=== PATIENT | male | born 1970 | race Caucasian/White ===

== ENCOUNTER 2016-11-25 20:35 | Emergency (ER) | payer SELFPAY ==
[~2016-11-25] VITALS: Ht 180.3 cm; Wt 106.6 kg
[~2016-11-25 20:35] MED LIST: ANTIVERT25 MG PO; CLEOCIN150 MG PO; IBU800 M1 PO; LISINOPRIL20 MG PO; PERCOCET 325 MG1 TA2 PO; SYNTHROID0.05 MG PO
[2016-11-26] MEDS ORDERED: Motrin,Rufen800 MG PO (00:23)
[2016-11-26] MEDS ORDERED: Percocet 325 MG1 TAB PO (00:23)
== END 2016-11-26 00:59 | disposition home or self-care (01) ==
LOC: ED 20:35
DX: S90.31XA Contusion of right foot, initial encounter (principal); S90.32XA Contusion of left foot, initial encounter; F17.200 Nicotine dependence, unspecified, uncomplicated; Z88.0 Allergy status to penicillin; Z88.1 Allergy status to other antibiotic agents; Z79.899 Other long term (current) drug therapy; W18.39XA Other fall on same level, initial encounter; Y93.89 Activity, other specified; Y92.89 Other specified places as the place of occurrence of the external cause; Y99.8 Other external cause status

== ENCOUNTER 2017-05-16 23:38 | Inpatient (IN) | payer SELFPAY ==
[~2017-05-16] VITALS: Ht 180.3 cm; Wt 108.0 kg
[~2017-05-16 23:38] MED LIST changes: +Motrin,Rufen800 MG PO; +Percocet 325 MG1 TAB PO
[2017-05-16 23:39] VITALS: BP 145/88
[2017-05-17 00:02] LABS: BASO % 0.4 % (0.0-1.0); EOS # 0.2 10*3/uL (0.0-0.4); EOS % 3.1 % (1.0-4.0); HEMATOCRIT 42.6 % (42.0-52.0); HEMOGLOBIN 14.1 g/dl (14.0-18.0); LYMPH # 0.8 10*3/uL (1.3-4.4); LYMPH % 15.1 % (27.0-41.0); MEAN CORPUSCULAR HGB 30.5 pg (27.0-31.0); MEAN CORPUSCULAR HGB CONC 33.1 g/dl (33.0-37.0); MEAN PLATELET VOLUME 10.3 fl (9.6-12.3); MONO # 0.8 10*3/uL (0.1-1.0); MONO % 14.5 % (3.0-9.0); NEUT # 3.4 10*3/uL (2.3-7.9); NEUT % 66.7 % (47.0-73.0); PLATELET COUNT AUTOMATED 150 10*3/uL (130-400); RED BLOOD COUNT 4.63 10*6/uL (4.50-5.90); RED CELL DISTRI WIDTH 12.6 % (0-14.5); WHITE BLOOD COUNT 5.2 10*3/uL (4.8-10.8)
[2017-05-17 00:11] VITALS: BP 125/71
[2017-05-17 00:14] LABS: ACT PARTIAL THROMBO TIME 25.7 SECONDS (20.8-31.5); INTERNATIONAL NORM RATIO 1.1 (2.0-3.5)
[2017-05-17 00:19] LABS: ALBUMIN 3.5 gm/dl (3.1-4.5); ALKALINE PHOSPHATASE 112 U/L (45-117); BUN 13 mg/dl (7-24); CHLORIDE 107 mmol/L (98-107); CREATININE 1.09 mg/dL (0.70-1.30); POTASSIUM 3.7 mmol/L (3.5-5.1); SGOT/AST 53 IU/L (3-35); SGPT/ALT 90 U/L (12-78); SODIUM 140 mmol/L (136-145); TOTAL PROTEIN 6.5 gm/dL (6.4-8.2)
[2017-05-17 00:24] LABS: TROPONIN I < 0.015 ng/ml (<0.045)
[2017-05-17 00:40] VITALS: BP 122/69
[2017-05-17 01:18] VITALS: BP 106/71
[2017-05-17] MEDS ORDERED: LEVOTHYROXINE150 MCG PO (01:37)
[2017-05-17] MEDS ORDERED: METFORMIN500 MG PO (01:55)
[2017-05-17] MEDS ORDERED: LISINOPRIL20 MG PO (01:55)
[2017-05-17 02:00] VITALS: BP 117/58
[2017-05-17 05:40] LABS: BILIRUBIN NEGATIVE (NEGATIVE); BLOOD NEGATIVE (NEGATIVE); CLARITY SL CLOUDY (CLEAR); COLOR YELLOW (YELLOW); GLUCOSE NEGATIVE (NEGATIVE); KETONE NEGATIVE (NEGATIVE); LEUKO ESTERASE 1+ (NEGATIVE); NITRITE NEGATIVE (NEGATIVE); PH 5.5 (5.0-9.0); SPECIFIC GRAVITY <= 1.005 (1.005-1.030); UROBILINOGEN 0.2 E.U./dl (0.2-1.0)
[2017-05-17 06:07] LABS: BASO % 0.5 % (0.0-1.0); EOS # 0.1 10*3/uL (0.0-0.4); EOS % 1.8 % (1.0-4.0); HEMATOCRIT 42.9 % (42.0-52.0); LYMPH % 23.2 % (27.0-41.0); MEAN CELL VOLUME 92.1 fl (80.0-94.0); MEAN CORPUSCULAR HGB CONC 32.6 g/dl (33.0-37.0); MEAN PLATELET VOLUME 10.5 fl (9.6-12.3); MONO # 0.6 10*3/uL (0.1-1.0); MONO % 14.6 % (3.0-9.0); NEUT # 2.6 10*3/uL (2.3-7.9); NEUT % 59.4 % (47.0-73.0); PLATELET COUNT AUTOMATED 146 10*3/uL (130-400); RED BLOOD COUNT 4.66 10*6/uL (4.50-5.90); RED CELL DISTRI WIDTH 12.7 % (0-14.5); WHITE BLOOD COUNT 4.4 10*3/uL (4.8-10.8)
[2017-05-17 06:12] LABS: BUN 11 mg/dl (7-24); CHLORIDE 106 mmol/L (98-107); CHOLESTEROL 130 mg/dL (<200); HDL CHOLESTEROL 31 mg/dl (40-60); LDL CHOLESTEROL 82 mg/dL (9-159); POTASSIUM 3.8 mmol/L (3.5-5.1); SODIUM 141 mmol/L (136-145); TRIGLYCERIDES 83 mg/dl (<150); VLDL CHOLESTEROL 17 mg/dL (6-40)
[2017-05-17 06:18] LABS: THYROID STIM HORMONE (HS) 0.085 uIU/ml (0.358-4.75)
[2017-05-17 06:20] LABS: INTERNATIONAL NORM RATIO 1.1 (2.0-3.5)
[2017-05-17 07:18] LABS: VITAMIN D, 25-HYDROXY 19.3 ng/mL (30-100)
[2017-05-17 08:00] VITALS: BP 112/79
[2017-05-17] MEDS ORDERED: VITAMIN D-32000 UNIT PO (11:51)
[2017-05-17] MEDS ORDERED: VIBRAMYCIN100 MG PO (11:51)
[2017-05-17] MEDS ORDERED: Vitamin D PO (11:51)
[2017-05-17] MEDS ORDERED: SYNTHROID,LEV125 MCG PO (11:51)
[2017-05-17] MEDS ORDERED: PREDNISONE20 M1 PO (11:51)
== END 2017-05-17 13:06 | disposition home or self-care (01) | DRG 206 ==
LOC: ED 23:38 → EDHOLD 05-17 01:31 → 4E 05-17 01:32
PROVIDERS: Emergency Medicine Emergency Medical Services; Internal Medicine
PROC: 4A02XM4 Measurement of Cardiac Total Activity, External Approach (ICD-10-PCS; principal; 2017-05-17)
DX: M94.0 Chondrocostal junction syndrome [Tietze] (principal); E11.65 Type 2 diabetes mellitus with hyperglycemia; I10 Essential (primary) hypertension; E03.9 Hypothyroidism, unspecified; F17.210 Nicotine dependence, cigarettes, uncomplicated; J20.9 Acute bronchitis, unspecified; Z79.899 Other long term (current) drug therapy; Z82.49 Family history of ischemic heart disease and other diseases of the circulatory system; Z88.0 Allergy status to penicillin; Z88.8 Allergy status to other drugs, medicaments and biological substances; Z71.6 Tobacco abuse counseling

== ENCOUNTER 2017-11-12 00:27 | Emergency (ER) | payer SELFPAY ==
[~2017-11-12] VITALS: Ht 180.3 cm; Wt 108.0 kg
[~2017-11-12 00:27] MED LIST changes: +LEVOTHYROXINE150 MCG PO; +METFORMIN500 MG PO; +PREDNISONE20 M1 PO; +SYNTHROID,LEV125 MCG PO; +VIBRAMYCIN100 MG PO; +VITAMIN D-32000 UNIT PO; +Vitamin D PO
[2017-11-12] MEDS ORDERED: KETOROLAC10 MG PO (01:37)
[2017-11-12] MEDS ORDERED: CLINDAMYCIN HC300 MG PO (01:37)
== END 2017-11-12 01:54 | disposition home or self-care (01) ==
LOC: ED 00:27
DX: S91.339A Puncture wound without foreign body, unspecified foot, initial encounter (principal); K04.01 Reversible pulpitis; K02.9 Dental caries, unspecified; E11.9 Type 2 diabetes mellitus without complications; E03.9 Hypothyroidism, unspecified; F17.200 Nicotine dependence, unspecified, uncomplicated; Z88.0 Allergy status to penicillin; Z88.1 Allergy status to other antibiotic agents; Z79.899 Other long term (current) drug therapy; W22.8XXA Striking against or struck by other objects, initial encounter; Y93.89 Activity, other specified; Y92.89 Other specified places as the place of occurrence of the external cause; Y99.8 Other external cause status

== ENCOUNTER 2024-09-10 18:48 | Emergency (ER) | payer BC ==
[~2024-09-10] VITALS: Ht 180.3 cm; Wt 110.7 kg
[~2024-09-10 18:48] MED LIST changes: +CLINDAMYCIN HC300 MG PO; +KETOROLAC10 MG PO
[2024-09-10] MEDS ORDERED: Cleocin150 MG PO (19:36)
[2024-09-10] MEDS ORDERED: Bactroban Oint22 GM T (19:36)
== END 2024-09-10 19:39 | disposition home or self-care (01) ==
LOC: ED 18:48
DX: L03.115 Cellulitis of right lower limb (principal); E11.9 Type 2 diabetes mellitus without complications; Z88.0 Allergy status to penicillin; Z88.1 Allergy status to other antibiotic agents; Z79.899 Other long term (current) drug therapy; Z79.84 Long term (current) use of oral hypoglycemic drugs; Z87.891 Personal history of nicotine dependence